=== PATIENT | male | born 1965 | race Caucasian/White ===

== ENCOUNTER 2022-01-09 13:58 | Emergency (ER) | payer MEDICARE, MEDICAID, SELFPAY ==
--- NOTE | ~2022-01-09 | XR_ITS ---
EXAMINATION: XR KNEE, RIGHT CLINICAL INFORMATION: Pain right knee. COMPARISON: None TECHNIQUE: Four views of the right knee. FINDINGS: There is an oval corticated fragment at the superior lateral lateral patella measuring 1.9 x 2.9 cm consistent with bipartite patella. There is no fracture or dislocation or destructive process. There is trace chondrocalcinosis medial meniscus. Mild narrowing medial knee joint compartment. No erosive change. There is moderate suprapatellar effusion. Normal bony mineralization. No periostitis. 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 -Mild narrowing medial knee joint compartment with trace meniscal chondrocalcinosis. -Moderate suprapatellar effusion.
[2022-01-09 14:01] VITALS: BP 149/94; PULSE 89; RESP 18; TEMP 36.6; O2SAT 97; BMI 29.5
--- NOTE | 2022-01-09 16:41 | ED.GENADULT ---
HPI - General Adult General Chief complaint: Extremity Problem Stated complaint: swollen knee Time Seen by Provider: 01/09/22 15:52 Source: patient Mode of arrival: ambulatory Limitations: no limitations History of Present Illness HPI narrative: 56-year-old male history right knee arthritis and meniscus knee tear in the past presents to ED for knee pain with swelling for the past 2 weeks. Patient states he has had this before due to arthritis. Patient denies any redness, warmth, fever, or chills. Patient denies any recent trauma. Patient states very painful no relief with Conrado bandage. Patient states not able to take NSAIDs due to him being on lithium as per his primary care provider. Related Data Previous Rx's Medication Instructions Recorded oxycodone 10 mg tablet 10 mg PO TID PRN pain 3 days #9 01/09/22 tabs Allergies Allergy/AdvReac Type Severity Reaction Status Date / Time No Known Allergies Allergy Unverified 01/08/20 17:28 [No Known Allergies*] Review of Systems Review of Systems: Right knee swelling Yes all other systems are reviewed and are negative [facility] Social History Social History Advance Directives: No Advance Directives Information Provided: No Physical Exam ED Vital Signs: Vital Signs - 24 hr 01/09/22 14:01 Temperature 97.9 F Pulse Rate 89 Respiratory Rate 18 Blood Pressure 149/94 H Pulse Oximetry 97 Oxygen Delivery Method Room Air BMI result Body Mass Index 29.5 Const General: cooperative, healthy appearing, comfortable, no acute distress, well developed and alert Orientation/consciousness: oriented to place, oriented to time and patient oriented x3 HENMT Head: Yes normal to inspection and Yes No palpable skull fracture present Ears: hearing grossly normal bilaterally Eyes General: appearance normal, both eyes and all related structures Neck Neck: Yes normal visual inspection, Yes full ROM, Yes no lymphadenopathy, Yes no meningeal signs, Yes trachea midline, Yes supple, No anterior neck swelling and No tender Chest Chest palpation & inspection: normal inspection of the chest and normal palpation of entire chest wall Resp Effort & Inspection: normal respiratory effort and able to speak in complete sentences Auscultation: clear to auscultation bilaterally Cardio Jugular venous distension: no JVD Heart sounds: S1 normal heart sound present and S2 normal heart sound present GI Inspection: Yes normal to inspection Palpation (GI): Soft to palpation, not firm, nontender, no guarding and not rigid General: No CVA tenderness and Yes no CVA tenderness Back/Spine/Pelvis Back: no CVA tenderness, No CVA tenderness and No back tenderness Skin General skin exam: no rashes or lesions noted and elasticity normal Neuro General: oriented to place, oriented to time, patient oriented x3, gait normal and no meningeal signs Cranial nerves: Yes CN's II-XII intact bilaterally Extrem General: Yes normal to inspection and Yes full ROM Knee images: 1. Positive for tenderness and moderate swelling. Positive ballottement. Negative for warmth, erythema, or stiffness. Patient able to move knee but with pain. Rest of right lower extremity normal. Motor/neuro/vascular exam intact Psych Appearance: grossly normal, well kempt and not disheveled Course Course Course Narrative: Sent for x-ray. Reevaluation(s) Reevaluation #1: X-ray shows moderate effusion. He was informed to patient no indication for arthrocentesis due to physical exam not indicate septic joint. Patient informed arthrocentesis will increase risk of infection since his knee is not infected but patient insists on arthrocentesis for pain relief. Patient states he has pain to walk and not able to put anything on his knee is very painful. Patient states not able to sleep not able to put Conrado bandage on knee. Patient states not able to take steroid injections due to heart palpitations in the past. Patient states not intake take NSAIDs. Last knee drain was 4 years ago. Case discussed with Dr. Koch agree for arthrocentesis. Patient agreeable to arthrocentesis knowing risk of infection bleeding and other complications. Time: 16:48 Reevaluation #2: Once again patient agreed to arthrocentesis of the right knee. Area clean with Betadine iodine. Lidocaine 1% 5 mL was used for local anesthesia. 18 gauge needle used with 50 mL syringe to drain knee. 45 mL was drained from the 1st syringe and another 5 mL was drained from a 2nd syringe. Five more of lidocaine 1% was injected into the knee. Synovial fluid was clear and not pus looking. Suspecting sepsis but was sent specimen. Patient feels better. Time: 17:55 Medical Decision Making MDM Narrative Medical decision making narrative: Knee joint effusion due to arthritis Lab Data Labs: Lab Results 01/09/22 01/09/22 Range/Units 18:40 18:40 Synovial Source right knee Synovial WBC 3.641 X10*3/uL Synovial RBC 0.029 X10*6/uL Synovial Neutrophils 10 % Synovial Lymphocytes 68 % Synovial Monocytes 21 % Synovial Other Cells 1 Synovial Glucose 87 Synovial Total Protein 4.1 Discharge Plan Discharge Clinical Impression: Knee joint effusion, Arthritis Patient Disposition: Home, Self-Care Instructions: Swollen Knee Joint (ED), Joint Aspiration (DC) Additional Instructions: Return to the ED for any fever, chills, redness, red streaks, bluish black discoloration, leg swelling, calf pain, worsening pain, increased swelling, or any other concerning symptoms. Please follow-up with your orthopedic surgeon at [facility]. He will be discharged with oxycodone and Conrado bandage. Prescriptions: New oxycodone 10 mg tablet 10 mg PO TID PRN (Reason: pain) 3 Days Qty: 9 0RF Rx Instructions: Partial Fill upon patient request. Stand Alone Forms: Work/School Release Interventions: ED Discharge Assessment Last Done: 01/09/22 18:43 Discharge Date/Time: 01/09/22 18:43 Print Language: Japanese
[2022-01-09] MEDS: Lidocaine HCl 1 % MPF 2 ML VIAL INFILTRATI ×5 (16:47→16:48)
[2022-01-09 18:44] LABS: Source Synovial Fluid right knee
[2022-01-09 19:00] LABS: RBC Synovial Fluid 0.029 X10*6/uL; WBC Synovial Fluid 3.641 X10*3/uL
[2022-01-09 19:38] LABS: BF Shift QC OK YES; Lymphocytes Synovial Fluid 68 %; Monocytes Synovial Fluid 21 %; Neutrophils Synovial Fluid 10 %; Other Cells Synovial Fluid 1
[2022-01-10 07:22] LABS: Glucose Synovial Fluid 87; Total Protein Synovial Fluid 4.1
== END 2022-01-09 18:43 | disposition home or self-care (01) ==
PROVIDERS: Physician Assistant; Emergency Provider Internal Medicine; PCP Pediatrics
DX: M25.461 Effusion, right knee (principal); M17.11 Unilateral primary osteoarthritis, right knee; M25.561 Pain in right knee; Z79.899 Other long term (current) drug therapy
CPT/HCPCS: 20610; 73564; 82945; 84157; 87071; 87073; 87205; 89051; 89060; 99282; 99285

== ENCOUNTER 2022-04-04 22:47 | Emergency (ER) | payer MEDICARE, MEDICAID, SELFPAY ==
[2022-04-04 23:12] VITALS: BP 139/79; PULSE 68; RESP 18; TEMP 36.7; O2SAT 97; BMI 29.5
[2022-04-05 00:06] LABS: Influenza A PCR NEGATIVE (Negative); Influenza B PCR NEGATIVE (Negative); Resp Syncy Virus RNA Qual PCR NEGATIVE (Negative); SARS COV2 PCR INHOUSE NEGATIVE (Negative)
--- NOTE | 2022-04-05 01:02 | ED.URI ---
HPI - URI/Sore Throat General Chief Complaint: Upper Respiratory Symptoms Stated Complaint: Flu like symptoms Time Seen by Provider: 04/05/22 00:42 Source: patient Mode of arrival: ambulatory Limitations: no limitations History of Present Illness HPI Narrative: Patient with History of bronchitis comes here for cough symptoms for last 1 week tested for COVID negative at home no fever no chills was wheezing also Related Data Previous Rx's Medication Instructions Recorded oxycodone 10 mg tablet 10 mg PO TID PRN pain 3 days #9 01/09/22 tabs albuterol sulfate 90 mcg/actuation 2 puff inhalation Q4-6H PRN 04/05/22 aerosol inhaler (ProAir HFA) shortness of breath or wheezing #8.5 grams amoxicillin 875 mg-potassium 1 tab PO BID #20 tabs 04/05/22 clavulanate 125 mg tablet benzonatate 200 mg capsule 200 mg PO TID PRN cough #30 caps 04/05/22 prednisone 20 mg tablet 40 mg PO DAILY #10 tabs 04/05/22 Allergies Allergy/AdvReac Type Severity Reaction Status Date / Time No Known Allergies Allergy Unverified 01/08/20 17:28 [No Known Allergies*] Review of Systems Review of Systems: Yes all other systems are reviewed and are negative [facility] Social History Social History Advance Directives: No Advance Directives Information Provided: Yes Physical Exam Vital Signs: Vital Signs: Last Vital Signs Temp 98.1 F 04/04/22 23:12 Pulse 68 04/04/22 23:12 Resp 18 04/04/22 23:12 BP 139/79 04/04/22 23:12 Pulse Ox 97 04/04/22 23:12 O2 Del Method 04/04/22 23:12 BMI result Body Mass Index 29.5 Appearance: Alert. Oriented X3. No acute distress. ENT: Pharynx normal. Oral Mucosa moist clear rhinorrhea Neck: Normal inspection. Neck supple. CVS: Normal heart rate and rhythm. Pulses normal. Respiratory: No respiratory distress. Equal air entry bilateral, bilateral wheezing Abdomen: Soft and nontender. Bowel sounds are present, no mass palpable, no CVA tenderness Skin: Skin warm and dry. Normal skin color. Normal skin turgor. Extremities: No lower extremity edema. No calf tenderness Neuro: Oriented X 3. No motor deficit Medications Administered Discontinued Medications Generic Name Dose Route Start Last Admin Trade Name Freq PRN Reason Stop Dose Admin Albuterol Sulfate 2 puff 04/05/22 01:02 04/05/22 01:16 Albuterol Sulfate 90 Mcg 8 Gm Inhaler INHALE 04/05/22 01:03 2 puff ONCE ONE Administration Amoxicillin/Clavulanate Potassium 875 mg 04/05/22 01:02 04/05/22 01:16 Amoxicillin/Potassium Clav 875 Mg Tablet PO 04/05/22 01:03 875 mg ONCE ONE Administration Benzonatate 200 mg 04/05/22 01:02 04/05/22 01:16 Benzonatate 100 Mg Capsule PO 04/05/22 01:03 200 mg ONCE ONE Administration Prednisone 60 mg 04/05/22 01:02 04/05/22 01:16 Prednisone 20 Mg Tablet PO 04/05/22 01:03 60 mg ONCE ONE Administration Medical Decision Making Lab Data MDM Lab Attestation statement: I reviewed the patient's lab results. Labs: Lab Results 04/04/22 Range/Units 23:24 Influenza Type A (PCR) NEGATIVE (Negative) Influenza Type B (PCR) NEGATIVE (Negative) RSV RNA Qual (PCR) NEGATIVE (Negative) SARS-CoV-2 RNA (RT-PCR) NEGATIVE (Negative) Discharge Plan Discharge Clinical Impression: Bronchitis Patient Disposition: Home, Self-Care Instructions: Acute Bronchitis (ED) Additional Instructions: Take antibiotics, prednisone ,inhaler as prescribed Follow with PCP Prescriptions: New benzonatate 200 mg capsule 200 mg PO TID PRN (Reason: cough) Qty: 30 0RF amoxicillin-pot clavulanate 875-125 mg tablet 1 tab PO BID Qty: 20 0RF prednisone 20 mg tablet 40 mg PO DAILY Qty: 10 0RF albuterol sulfate [ProAir HFA] 90 mcg/actuation HFA aerosol inhaler 2 puff inhalation Q4-6H PRN (Reason: shortness of breath or wheezing) Qty: 8.5 0RF No Action oxycodone 10 mg tablet 10 mg PO TID PRN (Reason: pain) 3 Days Qty: 9 0RF Rx Instructions: Partial Fill upon patient request. Interventions: ED Discharge Assessment Last Done: 04/05/22 01:39 Discharge Date/Time: 04/05/22 01:40
[2022-04-05] MEDS: Benzonatate 100 MG CAPSULE 200 MG PO (01:16)
[2022-04-05] MEDS: Amoxicillin/Potassium Clav 875 MG TABLET PO (01:16)
[2022-04-05] MEDS: Albuterol Sulfate 90 MCG 8 GM INHALER 2 PUFF INHALE (01:16)
[2022-04-05] MEDS: predniSONE 20 MG TABLET 60 MG PO (01:16)
== END 2022-04-05 01:40 | disposition home or self-care (01) ==
PROVIDERS: Emergency Provider Internal Medicine; PCP Pediatrics
DX: J40 Bronchitis, not specified as acute or chronic (principal); Z20.822 Contact with and (suspected) exposure to COVID-19
CPT/HCPCS: 0241U; 99282; 99283; 99284

== ENCOUNTER 2022-09-18 17:12 | Emergency (ER) | payer MEDICARE, MEDICAID, SELFPAY ==
[2022-09-18 17:28] VITALS: BP 142/82; PULSE 76; RESP 18; TEMP 37.1; O2SAT 97; BMI 29.1
--- NOTE | 2022-09-18 17:51 | ED_ITS ---
HPI - General Adult General Chief complaint: Upper Respiratory Symptoms Stated complaint: sore throat,persistent cough Time Seen by Provider: 09/18/22 18:47 Source: patient Mode of arrival: ambulatory Limitations: no limitations History of Present Illness HPI narrative: 57 yold male presents to the ED for sore throat, cough, bodyaches, and chills. Patient denies chest pain, shortness of breath, weakness, leg swelling, calf pain, or pleurisy. Related Data Previous Rx's Medication Instructions Recorded oxycodone 10 mg tablet 10 mg PO TID PRN pain 3 days #9 01/09/22 tabs albuterol sulfate 90 mcg/actuation 2 puff inhalation Q4-6H PRN 04/05/22 aerosol inhaler (ProAir HFA) shortness of breath or wheezing #8.5 grams amoxicillin 875 mg-potassium 1 tab PO BID #20 tabs 04/05/22 clavulanate 125 mg tablet benzonatate 200 mg capsule 200 mg PO TID PRN cough #30 caps 04/05/22 prednisone 20 mg tablet 40 mg PO DAILY #10 tabs 04/05/22 benzonatate 200 mg capsule 200 mg PO TID PRN cough 5 days #15 09/18/22 caps Allergies Allergy/AdvReac Type Severity Reaction Status Date / Time No Known Allergies Allergy Unverified 01/08/20 17:28 [No Known Allergies*] Review of Systems Review of Systems: URI symptoms Yes all other systems are reviewed and are negative [facility] Social History Social History Advance Directives: No Advance Directives Information Provided: No Physical Exam ED Vital Signs: Vital Signs - 24 hr 09/18/22 17:28 Temperature 98.8 F Pulse Rate 76 Respiratory Rate 18 Blood Pressure 142/82 H Pulse Oximetry 97 Oxygen Delivery Method Room Air BMI result Body Mass Index 29.1 Const General: cooperative, healthy appearing, comfortable, no acute distress, well developed, alert, awake and Physically active Orientation/consciousness: oriented to person, oriented to place, oriented to time and patient oriented x3 HENMT Head: Yes normal to inspection, Yes No palpable skull fracture present, Yes normocephalic, Yes atraumatic and No abrasion Throat: Yes posterior oropharynx normal, Yes tonsils normal and Yes uvula midline Eyes General: appearance normal, both eyes and all related structures Pupils: Equal, round and reactive pupils present Neck Neck: Yes normal visual inspection, Yes full ROM, Yes no lymphadenopathy, Yes no meningeal signs, Yes trachea midline, Yes supple, No anterior neck swelling and No tender Chest Chest palpation & inspection: normal inspection of the chest and normal palpation of entire chest wall Resp Effort & Inspection: normal respiratory effort and able to speak in complete sentences Auscultation: clear to auscultation bilaterally Cardio Jugular venous distension: no JVD Heart sounds: S1 normal heart sound present and S2 normal heart sound present GI Inspection: Yes normal to inspection and No abdominal wall ecchymosis Palpation (GI): Soft to palpation, not firm, nontender, no guarding, not rigid and hepatosplenomegaly present General: No CVA tenderness and Yes no CVA tenderness Back/Spine/Pelvis Back: no CVA tenderness, No CVA tenderness and No back tenderness Skin General skin exam: no rashes or lesions noted and elasticity normal Neuro General: oriented to person, oriented to place, oriented to time, patient oriented x3, gait normal, tone normal, moves all extremities, Normal light touch and pain sensation, no meningeal signs, no focal motor deficits, CN's II-XI intact bilaterally and normal sensation to monofilament Cranial nerves: Yes Equal, round and reactive pupils present Psych Appearance: grossly normal, well kempt and not disheveled Course Course Course Narrative: RME: 57 yold male presents to the ED for Sore throat and cough. Patient states no SOB. patient staes chills. Strep, Covid, and influenza swab ordered Reevaluation(s) Reevaluation #1: Positive Covid Medical Decision Making Medical Decision Making [facility] Narrative: 57 yold male presents to the ED for URI symptoms and sore throat. Vital signs stable. Patient is positive for Covid Differential Diagnosis Differential Diagnoses: The differential diagnosis associated with the presentation includes (Covid, INfluenza, Strep, Pneumonia) Lab Data [facility] Lab Attestation statement: I reviewed the patient's lab results. Labs: Lab Results 09/18/22 09/18/22 09/18/22 Range/Units 17:51 17:51 17:51 COVID-19 (SINDY) Positive A (Negative) COVID-19 Clin Com See Note Influenza Type A (ANNELIESE) Negative (Negative) Influenza Type B (ANNELIESE) Negative (Negative) Influenza A & B Note See Note S. pyogenes GrpA ANNELIESE Negative (Negative) Discharge Plan Discharge Clinical Impression: COVID-19 Patient Disposition: Home, Self-Care Instructions: COVID-19 (Coronavirus Disease 2019) (ED) Additional Instructions: Return to the ED for any chest pain, shortness of breath, coughing up blood, weakness, intractaclbe fever, or any other concerning symptoms. Please follow up with PCP Prescriptions: New benzonatate 200 mg capsule 200 mg PO TID PRN (Reason: cough) 5 Days Qty: 15 0RF No Action benzonatate 200 mg capsule 200 mg PO TID PRN (Reason: cough) Qty: 30 0RF amoxicillin-pot clavulanate 875-125 mg tablet 1 tab PO BID Qty: 20 0RF prednisone 20 mg tablet 40 mg PO DAILY Qty: 10 0RF albuterol sulfate [ProAir HFA] 90 mcg/actuation HFA aerosol inhaler 2 puff inhalation Q4-6H PRN (Reason: shortness of breath or wheezing) Qty: 8.5 0RF oxycodone 10 mg tablet 10 mg PO TID PRN (Reason: pain) 3 Days Qty: 9 0RF Rx Instructions: Partial Fill upon patient request. Stand Alone Forms: Work/School Release Interventions: ED Discharge Assessment Last Done: 09/18/22 19:04 Discharge Date/Time: 09/18/22 19:04 Print Language: Nigerien
[2022-09-18 18:07] LABS: COVID-19 Test Positive (Negative); IDNOW Serial# 55D5AD1C
[2022-09-18 18:16] LABS: IDNOW Serial# 08D9AD1C; IDNOW Serial# 9DB6401D; Influenza A Negative (Negative); Influenza B2 Negative (Negative); Strep A Nucleic Acid Negative (Negative)
== END 2022-09-18 19:04 | disposition home or self-care (01) ==
PROVIDERS: Physician Assistant; Emergency Provider Emergency Medicine
DX: U07.1 COVID-19 (principal); Z79.899 Other long term (current) drug therapy
CPT/HCPCS: 87502; 87635; 87651; 99282; 99283

== ENCOUNTER 2023-10-05 10:26 | Outpatient (REF) | payer MEDICARE, MEDICAID, SELFPAY ==
[2023-10-05 14:44] LABS: MANUAL DIFF FLAG NO
[2023-10-05 14:48] LABS: Basophils Absolute Auto 0.1 X10*3/uL (0.0-0.2); Basophils Percent Auto 0.9 % (0-2); Eosinophils Absolute Auto 0.3 X10*3/uL (0.0-0.4); Eosinophils Percent Auto 3.9 % (0-4); Hematocrit 43.6 % (42.0-52.0); Hemoglobin 15.6 g/dl (14.0-18.0); Imm Gran Abs Auto 0.07 X10*3/uL (0.00-0.03); Imm Gran Pct Auto 0.9 % (0.0-0.4); Lymphocytes Absolute Auto 2.6 X10*3/uL (1.2-4.9); Lymphocytes Percent Auto 33.3 % (20-40); Mean Corpuscular HGB Conc 35.8 g/dl (31.0-36.0); Mean Corpuscular Hemoglobin 30.9 pg (27.0-33.0); Mean Corpuscular Volume 86.3 fL (80.0-98.0); Mean Platelet Volume 9.9 fL (9.4-12.4); Monocytes Absolute Auto 0.5 X10*3/uL (0.1-1.2); Monocytes Percent Auto 6.2 % (2-11); Neutrophils Absolute Auto 4.2 x10*3/uL (2.0-8.3); Neutrophils Percent Auto 54.8 % (45-73); Platelet Count 225 X10*3/uL (160-400); Red Blood Count 5.05 X10*6/uL (4.60-5.80); Red Cell Distribution Width 12.7 % (11.0-16.0); White Blood Count 7.7 X10*3/uL (4.8-10.8)
[2023-10-05 15:07] LABS: Lithium 0.85 mmol/L (0.60-1.20)
[2023-10-05 15:11] LABS: Alanine Aminotransferase 35 U/L (0-40); Albumin Level 4.6 g/dL (3.5-5.0); Alkaline Phosphatase 62 U/L (39-117); Anion Gap 11 (12-20); Aspartate Amino Transferase 25 U/L (5-37); Bilirubin Direct 0.2 mg/dL (0.0-0.5); Bilirubin Total 0.5 mg/dL (0.0-1.0); Blood Urea Nitrogen 9 mg/dL (9-16); Calcium 9.7 mg/dL (8.4-10.2); Carbon Dioxide 28 mmol/L (22-29); Chloride 105 mmol/L (96-108); Estimated Glomerular Filt Rate > 60; Glucose Fasting 74 mg/dL (60-99); Potassium 3.7 mmol/L (3.3-5.1); Sodium 140 mmol/L (135-145); Total Protein 7.1 g/dL (6.5-8.0)
[2023-10-05 15:31] LABS: Thyroid Stimulating Hormone 5.49 uIU/mL (0.32-4.0); Vitamin D 25-OH Total 56.7 ng/mL (>30)
[2023-10-05 15:36] LABS: Folate 19.3 ng/mL (> or = 4.0); Vitamin B12 > 2000 pg/mL (200-900)
== END 2023-10-05 10:27 | disposition home or self-care (01) ==
LOC: HO.CHCLDS 10:26
PROVIDERS: Visit Provider Psychiatry & Neurology Psychiatry
DX: Z79.899 Other long term (current) drug therapy (principal)
CPT/HCPCS: 36415; 80053; 80076; 80178; 82248; 82306; 82607; 82746; 84443; 85025

== ENCOUNTER 2023-11-09 00:40 | Emergency (ER) | payer MEDICARE, MEDICAID, SELFPAY ==
[2023-11-09 00:48] VITALS: BP 138/86; PULSE 68; RESP 18; TEMP 36.2; O2SAT 98
== END 2023-11-09 02:24 | disposition left against medical advice (07) ==
PROVIDERS: Emergency Provider Emergency Medicine
DX: J02.9 Acute pharyngitis, unspecified (principal); Z53.21 Procedure and treatment not carried out due to patient leaving prior to being seen by health care provider
CPT/HCPCS: 99281

== ENCOUNTER 2023-11-10 11:49 | Emergency (ER) | payer MEDICARE, MEDICAID, SELFPAY ==
--- NOTE | ~2023-11-10 | CT_ITS ---
EXAMINATION: CT SCAN OF THE TEMPORAL BONES CLINICAL INFORMATION: Right ear swelling, retromastoid pain COMPARISON: None. TECHNIQUE: Multidetector helical imaging was performed in the axial plane with generation of oblique axial and coronal reformatted projections. This CT examination was performed using dose optimization techniques as appropriate, variously including the following: *Automated exposure control *Adjustment of mA and/or kV according to patient size (this includes techniques or standardized protocols for targeted exams where dose is matched to indication/reason for exam; i.e. extremities or head) *Use of iterative reconstruction technique DLP: 292 mGy-cm. FINDINGS: Asymmetric soft tissue swelling diffusely involving the right auricle, most pronounced of the lobule suggestive of right auricular cellulitis. Asymmetric inflammatory stranding within the right periauricular/perimastoidal soft tissues. Enlargement and hypodensity of the right parotid gland suggestive of parotitis, presumably secondary to right auricular cellulitis. No soft tissue thickening of the external auditory canal to suggest otitis externa. No findings of acute otomastoiditis. Lack of postcontrast sequences limits assessment for soft tissue abscess however none is suspected. The left The external auditory canals are clear. The tympanic membranes are intact without thickening. The middle ear cavities are clear. The ossicles are normal without erosive change. The round and oval windows are normal. There is normal mineralization of the otic capsules. The tegmen tympani and tegmen mastoideum are intact bilaterally. The mastoid air cells are clear. The cochlea, vestibule, and semicircular canals are normal bilateral. The vestibular aqueducts are normal. The bony internal auditory canals are normal. The facial nerve canals are normal. The bilateral carotid canals and jugular foramina are normal. The visualized paranasal sinuses are well aerated. Partially imaged chronic left ZMC complex fracture status post prior ORIF along the inferior left orbital rim. 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 Chronic fracture deformities of the bilateral medial and lateral pterygoid processes. Partially imaged hardware fixation of the right malar eminence. CT/CT mastoid IMPRESSION: 1. Asymmetric soft tissue swelling diffusely involving the right auricle, most pronounced of the lobule suggestive of right auricular cellulitis. Asymmetric inflammatory stranding within the right periauricular/perimastoidal soft tissues. Enlargement and hypodensity of the right parotid gland suggestive of parotitis, presumably secondary to right auricular cellulitis. No soft tissue thickening of the external auditory canal to suggest otitis externa. No findings of acute otomastoiditis. Lack of postcontrast sequences limits assessment for soft tissue abscess however none is suspected. 2. Partially imaged chronic left ZMC complex fracture status post prior ORIF along the inferior left orbital rim. 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
[2023-11-10 11:58] VITALS: BP 149/98; PULSE 74; RESP 16; O2SAT 98; BMI 29.0
--- NOTE | 2023-11-10 12:47 | ED.EAR ---
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 Patient reports that he woke 2 days ago with a symptoms. He denies any known injury ear. He does have history of psoriasis and has noticed some scaling and flaking around both ears. He denies any hearing change, fevers, chills, sore throat. He does report pain behind the right ear. Related Data Previous Rx's ?Medication ?Instructions ?Recorded oxycodone 10 mg tablet 10 mg PO TID PRN pain 3 days #9 01/09/22 tabs albuterol sulfate 90 mcg/actuation 2 puff inhalation Q4-6H PRN 04/05/22 aerosol inhaler (ProAir HFA) shortness of breath or wheezing #8.5 grams amoxicillin 875 mg-potassium 1 tab PO BID #20 tabs 04/05/22 clavulanate 125 mg tablet benzonatate 200 mg capsule 200 mg PO TID PRN cough #30 caps 04/05/22 prednisone 20 mg tablet 40 mg (2 x 20 mg) PO DAILY #10 tabs 04/05/22 benzonatate 200 mg capsule 200 mg PO TID PRN cough 5 days #15 09/18/22 caps cephalexin 500 mg capsule 500 mg PO BID #14 caps 11/10/23 doxycycline monohydrate 100 mg 100 mg PO BID #14 caps 11/10/23 capsule Allergies Allergy/AdvReac Type Severity Reaction Status Date / Time No Known Allergies Allergy Verified 11/10/23 12:00 [No Known Allergies*] Review of Systems Review of Systems: Yes all other systems are reviewed and are negative Constitutional: Constitutional: Reports no additional constitutional complaints, Denies body ache(s), Denies chills, Denies fever(s), Denies headache(s) and Denies weakness Eyes: Eyes: Reports no additional eye complaints and Denies change in vision ENT: Reports system reviewed and no additional complaints, except as documented, Denies dizziness, Denies headache(s), Denies nasal congestion, Denies nasal discharge and Denies neck pain Cardiovascular: Cardiovascular: Reports no additional cardiovascular complaints, Denies chest pain, Denies leg edema and Denies dyspnea Respiratory: Respiratory: Reports no additional respiratory complaints, Denies cough and Denies dyspnea Gastrointestinal: Gastrointestinal: Reports no additional gastrointestinal complaints, Denies abdominal pain, Denies diarrhea, Denies nausea and Denies vomiting Genitourinary: Genitourinary: Denies urinary incontinence Musculoskeletal: Musculoskeletal: Reports no additional musculoskeletal complaints, Denies back pain, Denies arthralgias, Denies joint swelling, Denies neck pain, Denies numbness and Denies tingling Integumentary/Breasts: Skin/Breast: Reports system reviewed and no additional complaints, except as docu, Reports swelling, Reports erythema and Denies rash Neurologic: Reports system reviewed and no additional complaints, except as documented, Denies Abnormal speech present, Denies dizziness, Denies headache(s), Denies numbness, Denies tingling and Denies weakness PMF Past Medical History Attestation statement: The following information was validated with the patient. Source: old records reviewed and nursing notes reviewed Social History Social History Advance Directives: No Advance Directives Information Provided: No Physical Exam Vital Signs: Vital Signs: Last Vital Signs Temp 98.8 F 11/10/23 14:00 Pulse 64 11/10/23 14:00 Resp 16 11/10/23 14:00 BP 119/76 11/10/23 14:00 Pulse Ox 96 11/10/23 14:00 O2 Del Method Room Air 11/10/23 14:00 BMI result Body Mass Index 29.0 Const: General: cooperative, healthy appearing, comfortable and no acute distress Orientation/consciousness: patient oriented x3 Limitations: no limitations HEENT: Other: The entire right ear is swollen with erythema and warmth. Head: Yes normal to inspection Ears: hearing grossly normal bilaterally, TM's normal bilaterally, no periauricular adenopathy and mastoid abnormal (Tenderness to right mastoid ) General nose exam: Normal external nose present Face and sinus: Yes normal facial exam Mouth: Normal oral and palatal mucosa present Throat: Yes posterior oropharynx normal, Yes tonsils normal and Yes uvula midline Eyes: General: appearance normal, both eyes and all related structures Pupils: Equal, round and reactive pupils present Neck: Neck: Yes normal visual inspection, Yes full ROM, Yes no lymphadenopathy and Yes no meningeal signs Chest: Chest palpation & inspection: normal inspection of the chest Resp: Effort & Inspection: normal respiratory effort Auscultation: clear to auscultation bilaterally Cardio: Rate: regular rate Rhythm: regular rhythm Peripheral pulses: Peripheral pulses 2+ throughout GI: Inspection: Yes normal to inspection Palpation (GI): Soft to palpation and nontender Auscultation: normal bowel sounds Back/Spine/Pelvis: Thoracic/Lumbar Spine: thoracic and lumbar spine normal to inspection Skin: General skin exam: no rashes or lesions noted Neuro: General: patient oriented x3, no meningeal signs, no focal motor deficits and normal sensation to monofilament Cranial nerves: Yes Equal, round and reactive pupils present Cognition (Neuro): normal cognition Speech: No Abnormal speech present Gait exam (Neuro): Normal gait present Motor exam (neuro): 5/5 motor strength present throughout Extrem: General: Yes normal to inspection Course Course Course Narrative: CT shows 1. Asymmetric soft tissue swelling diffusely involving the right auricle, most pronounced of the lobule suggestive of right auricular cellulitis. Asymmetric inflammatory stranding within the right periauricular/perimastoidal soft tissues. Enlargement and hypodensity of the right parotid gland suggestive of parotitis, presumably secondary to right auricular cellulitis. No soft tissue thickening of the external auditory canal to suggest otitis externa. No findings of acute otomastoiditis. Lack of postcontrast sequences limits assessment for soft tissue abscess however none is suspected. 2. Partially imaged chronic left ZMC complex fracture status post prior ORIF along the inferior left orbital rim. 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 Will discharge patient home with oral antibiotics. Reviewed worrisome signs and symptoms of when to return to the emergency room. Comfortable plan for discharge home. 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 Patient reports that he woke 2 days ago with a symptoms. He denies any known injury ear. He does have history of psoriasis and has noticed some scaling and flaking around both ears. He denies any hearing change, fevers, chills, sore throat. He does report pain behind the right ear. There is swelling, erythema, warmth to the right ear with tenderness to the right mastoid. The TM is normal. Still lymphadenopathy. Will obtain labs, CT mastoidi Differential Diagnosis Differential Diagnoses: The differential diagnosis associated with the presentation includes Cellulitis, mastoiditis Admission/Observation Consideration of admission/observation: Escalation of care including admission/observation considered Lab Data MDM Lab Attestation statement: I reviewed the patient's lab results. 11/10/23 12:59 11/10/23 12:59 Labs: Lab Results 11/10/23 Range/Units 12:59 WBC 7.4 (4.8-10.8) X10*3/uL RBC 5.04 (4.60-5.80) X10*6/uL Hgb 15.3 (14.0-18.0) g/dl Hct 42.0 (42.0-52.0) % MCV 83.3 (80.0-98.0) fL MCH 30.4 (27.0-33.0) pg MCHC 36.4 H (31.0-36.0) g/dl RDW 12.5 (11.0-16.0) % Plt Count 199 (160-400) X10*3/uL MPV 9.4 (9.4-12.4) fL Immature Gran % (Auto) 0.7 H (0.0-0.4) % Neut % (Auto) 71.0 (45-73) % Lymph % (Auto) 17.3 L (20-40) % [place] % (Auto) 7.7 (2-11) % Eos % (Auto) 2.8 (0-4) % Baso % (Auto) 0.5 (0-2) % Lymph # (Auto) 1.3 (1.2-4.9) X10*3/uL [place] # (Auto) 0.6 (0.1-1.2) X10*3/uL Eos # (Auto) 0.2 (0.0-0.4) X10*3/uL Baso # (Auto) 0.0 (0.0-0.2) X10*3/uL Abs Immat Gran (auto) 0.05 H (0.00-0.03) X10*3/uL Absolute Neuts (auto) 5.3 (2.0-8.3) x10*3/uL Absolute Nucleated RBC 0.000 (0.0-0.012) X10*3/uL Nucleated RBC % (auto) 0.0 (0.0-0.2) /100WBC Sodium 138 (135-145) mmol/L Potassium 4.0 (3.3-5.1) mmol/L Chloride 107 (96-108) mmol/L Carbon Dioxide 22 (22-29) mmol/L Anion Gap 13 (12-20) BUN 11 (9-16) mg/dL Creatinine 1.07 (0.5-1.4) mg/dL Estim Creat Clear Calc 89.3 Estimated GFR > 60 Random Glucose 103 (60-115) mg/dL Lactic Acid 0.7 (0.5-2.0) mmol/L Calcium 9.8 (8.4-10.2) mg/dL Total Bilirubin 0.8 (0.0-1.0) mg/dL Direct Bilirubin 0.2 (0.0-0.5) mg/dL AST 30 (5-37) U/L ALT 52 H (0-40) U/L Alkaline Phosphatase 79 (39-117) U/L Total Protein 7.2 (6.5-8.0) g/dL Albumin 4.7 (3.5-5.0) g/dL Independent Interpretation I performed an independent interpretation of an: CT Scan Interpretation: I independently reviewed the CT scan agree with the radiology report Radiology Impression Discussion of test interpretation with radiology: I have reviewed the radiologist's reading. Radiologist Impression: [address] [address] [address] Scan Report Signed Patient: Santiago Burks MR#: [id number] : 1965 Acct:[id number] Age/Sex: 58 / M ADM Date: 11/10/23 Loc: .ED Attending Dr: Ordering Physician: Savi Gonzales NP Date of Service: 11/10/23 Procedure(s): CT mastoid Accession Number(s): [id number] cc: Alis Cota MD; Savi Gonzales NP~ EXAMINATION: CT SCAN OF THE TEMPORAL BONES CLINICAL INFORMATION: Right ear swelling, retromastoid pain COMPARISON: None. TECHNIQUE: Multidetector helical imaging was performed in the axial plane with generation of oblique axial and coronal reformatted projections. This CT examination was performed using dose optimization techniques as appropriate, variously including the following: *Automated exposure control *Adjustment of mA and/or kV according to patient size (this includes techniques or standardized protocols for targeted exams where dose is matched to indication/reason for exam; i.e. extremities or head) *Use of iterative reconstruction technique DLP: 292 mGy-cm. FINDINGS: Asymmetric soft tissue swelling diffusely involving the right auricle, most pronounced of the lobule suggestive of right auricular cellulitis. Asymmetric inflammatory stranding within the right periauricular/perimastoidal soft tissues. Enlargement and hypodensity of the right parotid gland suggestive of parotitis, presumably secondary to right auricular cellulitis. No soft tissue thickening of the external auditory canal to suggest otitis externa. No findings of acute otomastoiditis. Lack of postcontrast sequences limits assessment for soft tissue abscess however none is suspected. The left The external auditory canals are clear. The tympanic membranes are intact without thickening. The middle ear cavities are clear. The ossicles are normal without erosive change. The round and oval windows are normal. There is normal mineralization of the otic capsules. The tegmen tympani and tegmen mastoideum are intact bilaterally. The mastoid air cells are clear. The cochlea, vestibule, and semicircular canals are normal bilateral. The vestibular aqueducts are normal. The bony internal auditory canals are normal. The facial nerve canals are normal. The bilateral carotid canals and jugular foramina are normal. The visualized paranasal sinuses are well aerated. Partially imaged chronic left ZMC complex fracture status post prior ORIF along the inferior left orbital rim. 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 Chronic fracture deformities of the bilateral medial and lateral pterygoid processes. Partially imaged hardware fixation of the right malar eminence. CT/CT mastoid IMPRESSION: 1. Asymmetric soft tissue swelling diffusely involving the right auricle, most pronounced of the lobule suggestive of right auricular cellulitis. Asymmetric inflammatory stranding within the right periauricular/perimastoidal soft tissues. Enlargement and hypodensity of the right parotid gland suggestive of parotitis, presumably secondary to right auricular cellulitis. No soft tissue thickening of the external auditory canal to suggest otitis externa. No findings of acute otomastoiditis. Lack of postcontrast sequences limits assessment for soft tissue abscess however none is suspected. 2. Partially imaged chronic left ZMC complex fracture status post prior ORIF along the inferior left orbital rim. 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 Discharge Plan Discharge Clinical Impression: Cellulitis Patient Disposition: Home, Self-Care Instructions: Cellulitis (ED) Additional Instructions: Return to the ER for increasing swelling, increasing redness, fever Take the antibiotics as prescribed Take the antibiotics with food Make sure you use sunscreen as the antibiotics can make you sensitive to the sun Prescriptions: New cephalexin 500 mg capsule 500 mg PO BID Qty: 14 0RF doxycycline monohydrate 100 mg capsule 100 mg PO BID Qty: 14 0RF No Action benzonatate 200 mg capsule 200 mg PO TID PRN (Reason: cough) Qty: 30 0RF amoxicillin-pot clavulanate 875-125 mg tablet 1 tab PO BID Qty: 20 0RF prednisone 20 mg tablet 40 mg PO DAILY Qty: 10 0RF albuterol sulfate [ProAir HFA] 90 mcg/actuation HFA aerosol inhaler 2 puff inhalation Q4-6H PRN (Reason: shortness of breath or wheezing) Qty: 8.5 0RF oxycodone 10 mg tablet 10 mg PO TID PRN (Reason: pain) 3 Days Qty: 9 0RF Rx Instructions: Partial Fill upon patient request. benzonatate 200 mg capsule 200 mg PO TID PRN (Reason: cough) 5 Days Qty: 15 0RF Referrals: Alis Cota MD [Primary Care Provider] - 1 week Print Language: Vietnamese
[2023-11-10 13:05] LABS: Basophils Percent Auto 0.5 % (0-2); Eosinophils Absolute Auto 0.2 X10*3/uL (0.0-0.4); Eosinophils Percent Auto 2.8 % (0-4); Hemoglobin 15.3 g/dl (14.0-18.0); Imm Gran Abs Auto 0.05 X10*3/uL (0.00-0.03); Imm Gran Pct Auto 0.7 % (0.0-0.4); Lymphocytes Absolute Auto 1.3 X10*3/uL (1.2-4.9); Lymphocytes Percent Auto 17.3 % (20-40); MANUAL DIFF FLAG NO; Mean Corpuscular HGB Conc 36.4 g/dl (31.0-36.0); Mean Corpuscular Hemoglobin 30.4 pg (27.0-33.0); Mean Corpuscular Volume 83.3 fL (80.0-98.0); Mean Platelet Volume 9.4 fL (9.4-12.4); Monocytes Absolute Auto 0.6 X10*3/uL (0.1-1.2); Monocytes Percent Auto 7.7 % (2-11); Neutrophils Absolute Auto 5.3 x10*3/uL (2.0-8.3); Platelet Count 199 X10*3/uL (160-400); Red Blood Count 5.04 X10*6/uL (4.60-5.80); Red Cell Distribution Width 12.5 % (11.0-16.0); White Blood Count 7.4 X10*3/uL (4.8-10.8)
[2023-11-10 13:16] VITALS: TEMP 36.5
[2023-11-10 13:17] LABS: Lactic Acid 0.7 mmol/L (0.5-2.0)
[2023-11-10 13:21] LABS: Alanine Aminotransferase 52 U/L (0-40); Albumin Level 4.7 g/dL (3.5-5.0); Alkaline Phosphatase 79 U/L (39-117); Anion Gap 13 (12-20); Aspartate Amino Transferase 30 U/L (5-37); Bilirubin Direct 0.2 mg/dL (0.0-0.5); Bilirubin Total 0.8 mg/dL (0.0-1.0); Blood Urea Nitrogen 11 mg/dL (9-16); Calcium 9.8 mg/dL (8.4-10.2); Carbon Dioxide 22 mmol/L (22-29); Chloride 107 mmol/L (96-108); Creatinine Clr Calc Pharmacy 89.3; Estimated Glomerular Filt Rate > 60; Glucose Random 103 mg/dL (60-115); Sodium 138 mmol/L (135-145); Total Protein 7.2 g/dL (6.5-8.0)
[2023-11-10 14:00] VITALS: BP 119/76; PULSE 64; RESP 16; TEMP 37.1; O2SAT 96
[2023-11-10 14:25] VITALS: BP 119/76; PULSE 64; RESP 16; TEMP 37.1; O2SAT 96
== END 2023-11-10 14:26 | disposition home or self-care (01) ==
PROVIDERS: Nurse Practitioner Family; Emergency Provider Emergency Medicine; PCP Pediatrics
DX: H60.11 Cellulitis of right external ear (principal); H92.01 Otalgia, right ear
CPT/HCPCS: 36415; 70481; 80048; 80076; 83605; 85025; 87040; 99283; 99284